=== PATIENT | female | born 1985 | race Caucasian/White ===

== ENCOUNTER 2017-02-20 21:10 | Emergency (ER) | payer OTHER ==
[2017-02-21] MEDS ORDERED: Ketorolac INJ* 60 MG/2 ML VIAL IM ONE (01:40)
[2017-02-21 03:10] VITALS: BP 122/70
--- NOTE | 2017-02-21 07:55 | RAD ---
Indication: Tailbone pain. Remote trauma November 14, 2016. Comparison: None. Technique: AP and lateral views sacrum and coccyx and a single AP view of the pelvis was obtained. Report: The visualized bones of the sacrum and coccyx are well-corticated and properly aligned. The joint spaces are adequately maintained. In the AP projection the pelvis and bilateral hips are normal. There is no radiographically apparent acute fracture or dislocation. IMPRESSION: Normal radiographic series of the pelvis, sacrum and coccyx. If the patient's symptoms persist, follow-up imaging is recommended.
--- NOTE | 2017-03-03 23:26 | ED ---
Jaz Dowd Michael, scribed for Tonio Galvez MD on 02/21/17 at 0049 . 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 She was a participant in a carrying exercise, and at the end the pt was dropped back into her seat aggravating the back pain. The back pain is worsened with movement and alleviated by laying down. She has a lump and states that it is hot. The pt originally hurt her back on 11/14/16 from slipping on ice and falling from her truck. - History of Current Complaint Chief Complaint: EDBackInjuryPain Stated Complaint: TAIL BONE PAIN Time Seen by Provider: 02/21/17 00:23 Hx Obtained From: Patient, Medical Records Onset/Duration: Sudden Onset Onset/Duration: Started Hours Ago Timing: Constant Back Pain Location: Is Discrete @ - lower back Severity Initially: Moderate Severity Currently: Moderate Pain Intensity: 8 Pain Scale Used: 0-10 Numeric Aggravating Symptom(s): Movement Alleviating Symptom(s): Position Associated Signs And Symptoms: Positive: Swelling, Other - back pain - Allergies/Home Medications Allergies/Adverse Reactions: Allergies Allergy/AdvReac Type Severity Reaction Status Date / Time Codeine Allergy Mild Vomiting Verified 07/27/16 15:33 PMH/Surg Hx/FS Hx/Imm Hx Endocrine/Hematology History: 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) Denies: Hx Diabetes Cardiovascular History: Denies: Hx Aneurysm, Hx Angina, Hx Angioplasty, Hx Atrial Fibrillation, Hx Auto Implanted Cardiovert Defib, Hx Cardiac Arrest, Hx Cardiomegaly, Hx Congenital Heart Disease, Hx Congestive Heart Failure, Hx Coronary Artery Disease, Hx Deep Vein Thrombosis, Hx Embolism, Hx Hypercholesterolemia, Hx Hypotension, Hx Hypertension, Hx Myocardial Infarction, Hx Pacemaker/ICD, Hx Peripheral Vascular Disease, Hx Rheumatic Fever, Hx Syncope, Hx Valvular Heart Disease, Other Cardiovascular Problems/Disorders Respiratory History: Denies: Hx Asthma, Hx Bronchopulmonary Dysplasia, Hx Chronic Bronchitis, Hx Chronic Obstructive Pulmonary Disease (COPD), Hx Cystic Fibrosis, Hx Lung Cancer , Hx Pleural Effusion, Hx Pneumonia, Hx Pulmonary Edema, Hx Pulmonary Embolism, Hx Seasonal Allergies, Hx Sleep Apnea, Other Respiratory Problems/Disorders GI History: Denies: Hx Cirrhosis, Hx Crohn's Disease, Hx Diverticulosis, Hx Gall Bladder Disease, Hx Gastroesophageal Reflux Disease, Hx Gastrointestinal Bleed, Hx Hiatal Hernia, Hx Irritable Bowel, Hx Jaundice, Hx Obstructive Bowel, Hx Ileostomy, Hx Pyloric Stenosis, Hx Ulcer, Hx Urosepsis, Other GI Disorders History: Reports: Hx Kidney Infection - stent x 5 this pregnanc y, none now, Other Problems/Disorders Denies: Hx Renal Disease Musculoskeletal History: Reports: Hx Rheumatoid Arthritis - JRA Sensory History: Denies: Hx Hearing Aid Psychiatric History: Reports: Hx Anxiety Denies: Hx Panic Disorder - Surgical History Surgery Procedure, Year, and Place: thyroidectomy 2009. C SECTION 11/2015 Infectious Disease History: No Infectious Disease History: Denies: History Other Infectious Disease, Traveled Outside the [place] in Last 30 Days - Family History Known Family History: Positive: None Negative: Blood Disorder - Social History Occupation: Employed Full-time Lives: With Family Alcohol Use: None Substance Use Type: Reports: None Hx Tobacco Use: No Smoking Status (MU): Never Smoked Tobacco Have You Smoked in the Last Year: No Review of Systems Negative: Fever Positive: Other - back pain. All Other Systems Reviewed And Are Negative: Yes Physical Exam Vital Signs On Initial Exam: Initial Vitals Temp Pulse Resp BP Pulse Ox 98.0 F 81 16 139/75 100 02/20/17 21:33 02/20/17 21:33 02/20/17 21:33 02/20/17 21:33 02/20/17 21:33 Diagnostics - Vital Signs Vital Signs Temp Pulse Resp BP Pulse Ox 02/20/17 23:46 97.2 F 90 16 121/69 100 02/20/17 21:33 98.0 F 81 16 139/75 100 - Laboratory Lab Statement: Any lab studies that have been ordered have been reviewed, and results considered in the medical decision making process. - Radiology Pelvis XR Xray Interpretation: No Acute Changes Radiology Interpretation Completed By: ED Physician Sacrum/Coccyx XR Xray Interpretation: No Acute Changes Radiology Interpretation Completed By: ED Physician Back Pain Course/Dx - Diagnoses Provider Diagnoses: contusion status post fall Discharge - Discharge Plan Condition: Stable Disposition: HOME Patient Education Materials: Acute Low Back Pain (ED) Forms: *Work Release Referrals: Manuel Jauregui MD [Primary Care Provider] - Additional Instructions: You should follow up with Dr. Jauregui within the next 2-3 days. The documentation as recorded by the Jaz jacobsen Michael accurately reflects the service I personally performed and the decisions made by me, Tonio Galvez MD.
== END 2017-02-21 03:08 | disposition home or self-care (01) ==
LOC: ED 21:10
DX: S20.229A Contusion of unspecified back wall of thorax, initial encounter (principal); R60.0 Localized edema; W19.XXXA Unspecified fall, initial encounter; Y93.9 Activity, unspecified; Y92.9 Unspecified place or not applicable
CPT/HCPCS: 72170; 72220; 96372; 99282; J1885

== ENCOUNTER 2018-05-19 17:45 | Emergency (ER) | payer OTHER ==
[2018-05-19 18:12] LABS: ABS Basophils 0.1 10^3/ul (0-0.2); ABS Eosinophils 0.1 10^3/ul (0-0.6); ABS Lymphocytes 2.6 10^3/ul (1.0-4.8); ABS Monocytes 0.5 10^3/ul (0-0.8); ABS Neutrophils 6.4 10^3/ul (1.5-7.7); ABS Nucleated RBC 0 10^3/ul; Eosinophil % 1.1 % (0-6); Hematocrit 42 % (35-47); Hemoglobin 14.2 g/dl (12.0-16.0); Lymphocyte % 27.4 % (25-47); Mean Corpuscular HGB Conc 34 g/dl (31-36); Mean Corpuscular Hemoglobin 31 pg (27-31); Mean Corpuscular Volume 92 fL (80-97); Mean Platelet Volume 9.1 um3 (7.4-10.4); Nucleated Red Blood Cells % 0.1; Platelet Count 209 10^3/ul (150-450); Red Cell Distribution Width 13 % (10.5-15); White Blood Count 9.6 10^3/ul (3.5-10.8)
[2018-05-19 18:29] LABS: EGFR Non-African American 65.7 (>60)
--- NOTE | 2018-05-19 18:45 | RAD ---
INDICATION: Chest pain COMPARISON: None TECHNIQUE: An AP portable view obtained at 1820 hours is submitted. FINDINGS: Bones/Soft Tissues: There are no acute bony findings. Cardiomediastinal: The cardiomediastinal silhouette is normal. Lungs: There are no infiltrates. Pleura: There are no pleural effusions. Other: None IMPRESSION: NORMAL CHEST.
--- NOTE | 2018-05-19 18:57 | RAD ---
INDICATION: Right upper quadrant pain COMPARISON: CT abdomen pelvis November 24, 2014 TECHNIQUE: Longitudinal and transverse scans of the right upper quadrant were obtained. Doppler interrogation of the hepatic and portal venous system was performed. FINDINGS: Liver: The liver is enlarged. The echogenicity is normal. There are no masses. The liver measures 20.4 cm in cephalocaudal dimension. Vessels: There is normal hepatic and portal venous flow. Bile ducts: There is no evidence of intrahepatic or extrahepatic ductal dilatation. The common duct measures 0.4 cm. Gallbladder: The sonographic appearance of the gallbladder is normal. There is no evidence of cholelithiasis, thickening of the gallbladder wall, or pericholecystic fluid. Pancreas: Not seen due to interfering bowel gas Right kidney: The right kidney is normal in size and echogenicity. There are no masses or calculi. There is no evidence of hydronephrosis. The right kidney measures 11.5 x 4.9 x 4.1 cm. IVC and aorta: The aorta and superior vena cava appear normal. Fluid: There is no ascites. Other: None. IMPRESSION: HEPATOMEGALY. NORMAL GALLBLADDER.
[2018-05-19] MEDS ORDERED: Lidocaine 2% VISCOUS* 15 ML UDC PO ONE (21:51)
[2018-05-19] MEDS ORDERED: Al Hydrox/Mg Hydrox/Simet LIQ* 30 ML UDC PO ONE (21:52)
[2018-05-19] MEDS ORDERED: Acetaminophen TAB* 325 MG PO ONE (21:53)
--- NOTE | 2018-05-19 22:46 | ED ---
Jason Dowd Natalie, scribed for Zoë Bundy MD on 05/19/18 at 1835 . HPI Chest Pain - HPI Summary HPI Summary: The patient is a 32 y/o F presenting to [facility] c/o midsternal CP and epigastric pain underneath her xiphoid process starting a few hours [employer]. The pain is constant with intermittent episodes of burning sensations and does not radiate. The pain is described as a stabbing and smashing in her chest, rated 5/10 in severity. She additionally c/o SOB, lightheadedness, dizziness, nausea without vomiting, constipation with some episodes of diarrhea, and loss of appetite. She first felt nauseous two days ago when she was running on a treadmill, but did not have the epigastric pain then. She states that the pain did not start after eating. She has not taken any medication [employer] to relieve the pain. Her last normal bowel movement was 05/15/18. - History of Current Complaint [facility] Time Seen by Provider: 05/19/18 17:50 Hx Obtained From: Patient Onset/Duration: Started Hours Ago, Still Present Timing: Constant, Lasting Hours Initial Severity: Moderate Current Severity: Moderate Pain Intensity: 5 Pain Scale Used: 0-10 Numeric Chest Pain Location: Mid Sternal - epigastric Chest Pain Radiates: No Chest Pain Radiates To:: Epigastric Character: Burning, Sharp/Stabbing, Other: - smashing Aggravating Factor(s): Nothing Alleviating Factor(s): Nothing Associated Signs and Symptoms: Positive: Dizziness, Shortness of Breath, Lightheadedness, Nausea, Other: - constipation and diarrhea, loss of appetite. 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) Denies: Hx Diabetes Cardiovascular History: Denies: Hx Aneurysm, Hx Angina, Hx Angioplasty, Hx Atrial Fibrillation, Hx Auto Implanted Cardiovert Defib, Hx Cardiac Arrest, Hx Cardiomegaly, Hx Congenital Heart Disease, Hx Congestive Heart Failure, Hx Coronary Artery Disease, Hx Deep Vein Thrombosis, Hx Embolism, Hx Hypercholesterolemia, Hx Hypotension, Hx Hypertension, Hx Myocardial Infarction, Hx Pacemaker/ICD, Hx Peripheral Vascular Disease, Hx Rheumatic Fever, Hx Syncope, Hx Valvular Heart Disease, Other Cardiovascular Problems/Disorders Respiratory History: Denies: Hx Asthma, Hx Bronchopulmonary Dysplasia, Hx Chronic Bronchitis, Hx Chronic Obstructive Pulmonary Disease (COPD), Hx Cystic Fibrosis, Hx Lung Cancer , Hx Pleural Effusion, Hx Pneumonia, Hx Pulmonary Edema, Hx Pulmonary Embolism, Hx Seasonal Allergies, Hx Sleep Apnea, Other Respiratory Problems/Disorders GI History: Denies: Hx Cirrhosis, Hx Crohn's Disease, Hx Diverticulosis, Hx Gall Bladder Disease, Hx Gastroesophageal Reflux Disease, Hx Gastrointestinal Bleed, Hx Hiatal Hernia, Hx Irritable Bowel, Hx Jaundice, Hx Obstructive Bowel, Hx Ileostomy, Hx Pyloric Stenosis, Hx Ulcer, Hx Urosepsis, Other GI Disorders History: Reports: Hx Kidney Infection - stent x 5 this pregnanc y, none now, Other Problems/Disorders Denies: Hx Renal Disease Musculoskeletal History: Reports: Hx Rheumatoid Arthritis - JRA Sensory History: Denies: Hx Hearing Aid Psychiatric History: Reports: Hx Anxiety Denies: Hx Panic Disorder - Surgical History Surgery Procedure, Year, and Place: thyroidectomy 2009. C SECTION 11/2015 Infectious Disease History: No Infectious Disease History: Denies: History Other Infectious Disease, Traveled Outside the [place] in Last 30 Days - Family History Known Family History: Positive: None Negative: Blood Disorder - Social History Alcohol Use: None Substance Use Type: Reports: None Hx Tobacco Use: No Smoking Status (MU): Never Smoked Tobacco Have You Smoked in the Last Year: No Review of Systems Positive: Other - lightheaded, dizziness Positive: Chest Pain - mid sternal pain Positive: Shortness Of Breath Positive: Abdominal Pain - epigastric pain, Nausea, Other - constipation with episodes of diarrhea, loss of appetite. Negative: Vomiting All Other Systems Reviewed And Are Negative: Yes Physical Exam - Summary Physical Exam Summary: Appearance: Well-appearing, Well-nourished Skin: Warm Eyes: Normal ENT: Normal Neck: Supple, nontender Respiratory: Clear to auscultation Cardiovascular: Regular rate, regular rhythm. Normal S1, S2. Abdomen: Soft,moderate epigastric tenderness that does not radiate, normal bowel sounds Musculoskeletal: Normal, Strength/ROM Intact Neurological: Normal, A&Ox3 Psychiatric: Normal General: No acute distress Triage Information Reviewed: Yes Vital Signs On Initial Exam: Initial Vitals Temp Pulse Resp BP Pulse Ox 98.9 F 80 16 123/65 96 05/19/18 17:51 05/19/18 17:51 05/19/18 17:51 05/19/18 17:51 05/19/18 17:51 Vital Signs Reviewed: Yes Diagnostics - Vital Signs Vital Signs Temp Pulse Resp BP Pulse Ox 05/19/18 17:51 98.9 F 80 16 123/65 96 - Laboratory Lab Results: Lab Results 05/19/18 Range/Units 18:04 WBC 9.6 (3.5-10.8) 10^3/ul RBC 4.60 (4.00-5.40) 10^6/ul Hgb 14.2 (12.0-16.0) g/dl Hct 42 (35-47) % MCV 92 (80-97) fL MCH 31 (27-31) pg MCHC 34 (31-36) g/dl RDW 13 (10.5-15) % Plt Count 209 (150-450) 10^3/ul MPV 9.1 (7.4-10.4) um3 Neut % (Auto) 66.2 (38-83) % Lymph % (Auto) 27.4 (25-47) % [place] % (Auto) 4.7 (0-7) % Eos % (Auto) 1.1 (0-6) % Baso % (Auto) 0.6 (0-2) % Absolute Neuts (auto) 6.4 (1.5-7.7) 10^3/ul Absolute Lymphs (auto) 2.6 (1.0-4.8) 10^3/ul Absolute Monos (auto) 0.5 (0-0.8) 10^3/ul Absolute Eos (auto) 0.1 (0-0.6) 10^3/ul Absolute Basos (auto) 0.1 (0-0.2) 10^3/ul Absolute Nucleated RBC 0 10^3/ul Nucleated RBC % 0.1 Result Diagrams: 05/19/18 18:04 05/19/18 18:04 Lab Statement: Any lab studies that have been ordered have been reviewed, and results considered in the medical decision making process. - Radiology CXR Xray Interpretation: No Acute Changes - Normal chest. ED physician has reviewed this report. Radiology Interpretation Completed By: Radiologist - Ultrasound No standard instances Ultrasound Interpretation: Positive (See Comments) - Gallbladder US: Hepatomegaly. Normal gallbladder. ED physician has reviewed this report. Ultrasound Interpretation Completed By: Radiologist - EKG 17:48 Cardiac Rate: NL EKG Rhythm: Sinus Rhythm - 72 BPM EKG Interpretation: No ST T wave changes. Chest Pain Course/Dx - Course Course Of Treatment: LABS WNL, cxr and RUQ sono WNL. Trop neg. If pain continues f/u with GI - Diagnoses Provider Diagnoses: Epigastric abdominal pain Discharge - Sign-Out/Discharge Documenting (check all that apply): Discharge/Admit/Transfer - The pt will be discharged home. - Discharge Plan Condition: Stable Disposition: HOME Patient Education Materials: Epigastric Pain (ED) Referrals: Manuel Jauregui MD [Primary Care Provider] - - Billing Disposition and Condition Condition: STABLE Disposition: Home The documentation as recorded by the Jason jacobsen Natalie accurately reflects the service I personally performed and the decisions made by Gregor conner Euni, MD.
[2018-05-19] MEDS ORDERED: Famotidine TAB* 20 MG PO ONE (22:58)
[2018-05-19 23:15] VITALS: BP 120/72
== END 2018-05-19 23:14 | disposition home or self-care (01) ==
LOC: ED 17:45
DX: R10.13 Epigastric pain (principal); R06.02 Shortness of breath; R42 Dizziness and giddiness; R11.0 Nausea; K59.00 Constipation, unspecified; R16.0 Hepatomegaly, not elsewhere classified; Z88.5 Allergy status to narcotic agent; E06.3 Autoimmune thyroiditis; M08.00 Unspecified juvenile rheumatoid arthritis of unspecified site; F41.9 Anxiety disorder, unspecified; E89.0 Postprocedural hypothyroidism
CPT/HCPCS: 36415; 71045; 76705; 80053; 84484; 85025; 93005; 99283; A9270-GY

== ENCOUNTER 2019-07-27 20:30 | Emergency (ER) | payer OTHER ==
--- NOTE | 2019-07-27 21:00 | ED ---
Skin Complaint - HPI Summary HPI Summary: Patient complains of pain and swelling to right side labia or vagina 4 days. Patient states started after she shaved. History of same. Denies fever, cough , sore throat, CP, SOB, accessory 60, abdominal pain, change in urine, change in BM, other vaginal symptoms. - History of Current Complaint Chief Complaint: EDUrogenitalProblems Time Seen by Provider: 07/27/19 20:58 Stated Complaint: "CYST PER PT" Hx Obtained From: Patient Onset/Duration: Started Days Ago Skin Exposure Onset/Duration: Days Ago Timing: Constant Onset Severity: Mild Current Severity: Severe Pain Intensity: 8 Pain Scale Used: 0-10 Numeric Skin Location: Discrete, Other: Aggravating Symptom(s): Touch Alleviating Symptom(s): Nothing Associated Signs & Symptoms: Negative - Allergy/Home Medications Allergies/Adverse Reactions: Allergies Allergy/AdvReac Type Severity Reaction Status Date / Time codeine AdvReac Vomiting Verified 07/27/19 21:18 Home Medications: Home Medications Cytomel 0.25 mcg PO DAILY PRN 07/27/19 [History Confirmed 07/27/19] PMH/Surg Hx/FS Hx/Imm Hx Endocrine/Hematology History: 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) Denies: Hx Diabetes Cardiovascular History: Denies: Hx Aneurysm, Hx Angina, Hx Angioplasty, Hx Atrial Fibrillation, Hx Auto Implanted Cardiovert Defib, Hx Cardiac Arrest, Hx Cardiomegaly, Hx Congenital Heart Disease, Hx Congestive Heart Failure, Hx Coronary Artery Disease, Hx Deep Vein Thrombosis, Hx Embolism, Hx Hypercholesterolemia, Hx Hypotension, Hx Hypertension, Hx Myocardial Infarction, Hx Pacemaker/ICD, Hx Peripheral Vascular Disease, Hx Rheumatic Fever, Hx Syncope, Hx Valvular Heart Disease, Other Cardiovascular Problems/Disorders Respiratory History: Denies: Hx Asthma, Hx Bronchopulmonary Dysplasia, Hx Chronic Bronchitis, Hx Chronic Obstructive Pulmonary Disease (COPD), Hx Cystic Fibrosis, Hx Lung Cancer , Hx Pleural Effusion, Hx Pneumonia, Hx Pulmonary Edema, Hx Pulmonary Embolism, Hx Seasonal Allergies, Hx Sleep Apnea, Other Respiratory Problems/Disorders GI History: Denies: Hx Cirrhosis, Hx Crohn's Disease, Hx Diverticulosis, Hx Gall Bladder Disease, Hx Gastroesophageal Reflux Disease, Hx Gastrointestinal Bleed, Hx Hiatal Hernia, Hx Irritable Bowel, Hx Jaundice, Hx Obstructive Bowel, Hx Ileostomy, Hx Pyloric Stenosis, Hx Ulcer, Hx Urosepsis, Other GI Disorders History: Reports: Hx Kidney Infection - stent x 5 this pregnanc y, none now, Other Problems/Disorders Denies: Hx Renal Disease Musculoskeletal History: Reports: Hx Rheumatoid Arthritis - JRA Sensory History: Denies: Hx Hearing Aid Opthamlomology History: Denies: Hx Eye Prosthesis EENT History: Denies: Hx Deafness Neurological History: Denies: Hx Dementia Psychiatric History: Reports: Hx Anxiety Denies: Hx Panic Disorder - Surgical History Surgery Procedure, Year, and Place: thyroidectomy 2009. C SECTION 11/2015 Infectious Disease History: No Infectious Disease History: Denies: History Other Infectious Disease, Traveled Outside the [place] in Last 30 Days - Family History Known Family History: Positive: None Negative: Blood Disorder - Social History Alcohol Use: None Substance Use Type: Reports: None Hx Tobacco Use: No Smoking Status (MU): Never Smoked Tobacco Have You Smoked in the Last Year: No Review of Systems Constitutional: Negative Eyes: Negative ENT: Negative Cardiovascular: Negative Respiratory: Negative Gastrointestinal: Negative Genitourinary: Negative Musculoskeletal: Negative Skin: Other Neurological: Negative Psychological: Normal All Other Systems Reviewed And Are Negative: Yes Physical Exam - Summary Physical Exam Summary: 3 cm x 2 cm apical abscess on lower right labia majora. External exam of the vagina otherwise unremarkable. Triage Information Reviewed: Yes Vital Signs On Initial Exam: Initial Vitals Temp Pulse Resp BP Pulse Ox 98.7 F 98 16 159/88 99 07/27/19 20:40 07/27/19 20:40 07/27/19 20:40 07/27/19 20:40 07/27/19 20:40 Vital Signs Reviewed: Yes Appearance: Positive: Well-Appearing Skin: Positive: Warm Head/Face: Positive: Normal Head/Face Inspection Eyes: Positive: Normal Neck: Positive: Supple Respiratory/Lung Sounds: Positive: Clear to Auscultation Cardiovascular: Positive: Normal Abdomen Description: Positive: Nontender Pelvic Exam: Positive: External Exam Normal Musculoskeletal: Positive: Normal Neurological: Positive: Normal Psychiatric: Positive: Normal AVPU Assessment: Alert - [place] Coma Scale Best Eye Response: 4 - Spontaneous Best Motor Response: 6 - Obeys Commands Best Verbal Response: 5 - Oriented Coma Scale Total: 15 Diagnostics - Vital Signs Vital Signs Temp Pulse Resp BP Pulse Ox 07/27/19 20:40 98.7 F 98 16 159/88 99 - Laboratory Lab Statement: Any lab studies that have been ordered have been reviewed, and results considered in the medical decision making process. Course/Dx - Course Course Of Treatment: Patient complains of pain and swelling to right side labia or vagina 4 days. Patient states started after she shaved. History of same. Denies fever, cough, sore throat, CP, SOB, accessory 60, abdominal pain, change in urine, change in BM, other vaginal symptoms. Vital signs within normal limits. I&D performed with positive purulent drainage. Patient started on Bactrim here in ED. Rx for same. - Diagnoses Provider Diagnoses: Abscess of labia majora Discharge ED - Sign-Out/Discharge Documenting (check all that apply): Patient Departure Patient Received Moderate/Deep Sedation with Procedure: No - Discharge Plan Condition: Stable Disposition: HOME Prescriptions: Sulfamethox/Trimethoprim DS* [Bactrim DS 800/160 TAB*] 1 tab PO BID 10 Days #20 tab Patient Education Materials: Abscess (ED) Referrals: Manuel Jauregui MD [Primary Care Provider] - Additional Instructions: Take antibiotics as directed. Continue warm compresses and sitz baths to help facilitate draining of abscess. Continue to press occasionally on abscess to help drain. Do not go swimming for one week. Keep area clean and dry when not washing or doing sitz baths. Return to the ED for any new or worsening symptoms. - Billing Disposition and Condition Condition: STABLE Disposition: Home
[2019-07-27] MEDS ORDERED: Ibuprofen TAB* 600 MG PO ONE (21:22)
[2019-07-27] MEDS ORDERED: Sulfamethox/Trimethoprim DS 800/160* TAB PO ONE (22:16)
[2019-07-27 23:12] VITALS: BP 114/72
== END 2019-07-27 23:13 | disposition home or self-care (01) ==
LOC: ED 20:30
DX: R10.2 Pelvic and perineal pain (principal); N76.4 Abscess of vulva; E03.9 Hypothyroidism, unspecified; Z87.448 Personal history of other diseases of urinary system; F41.9 Anxiety disorder, unspecified
CPT/HCPCS: 99282; A9270-GY

== ENCOUNTER 2019-08-01 10:31 | Inpatient (IN) | payer OTHER ==
--- NOTE | 2019-08-01 10:47 | ED ---
Skin Complaint - HPI Summary HPI Summary: Pt. is a 33 y.o female who presents to the ER for worsening vaginal abscess. Pt. states about a week ago she noticed a painful bump to her right labial region. She believes it was an ingrown hair. Pt. was seen in ED 07/27 and had an I and D of area and was placed on Bactrim. Pt. states she has been taking bactrim and doing warm sitz. Pt. states that area is becoming more painful and swollen. No drainage. She notes fever and chills. Not a diabetic. Sxs are moderate in severity. Touching area makes sxs worse. Nothing makes sxs better. 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) Denies: Hx Diabetes Cardiovascular History: Denies: Hx Aneurysm, Hx Angina, Hx Angioplasty, Hx Atrial Fibrillation, Hx Auto Implanted Cardiovert Defib, Hx Cardiac Arrest, Hx Cardiomegaly, Hx Congenital Heart Disease, Hx Congestive Heart Failure, Hx Coronary Artery Disease, Hx Deep Vein Thrombosis, Hx Embolism, Hx Hypercholesterolemia, Hx Hypotension, Hx Hypertension, Hx Myocardial Infarction, Hx Pacemaker/ICD, Hx Peripheral Vascular Disease, Hx Rheumatic Fever, Hx Syncope, Hx Valvular Heart Disease, Other Cardiovascular Problems/Disorders Respiratory History: Denies: Hx Asthma, Hx Bronchopulmonary Dysplasia, Hx Chronic Bronchitis, Hx Chronic Obstructive Pulmonary Disease (COPD), Hx Cystic Fibrosis, Hx Lung Cancer , Hx Pleural Effusion, Hx Pneumonia, Hx Pulmonary Edema, Hx Pulmonary Embolism, Hx Seasonal Allergies, Hx Sleep Apnea, Other Respiratory Problems/Disorders GI History: Denies: Hx Cirrhosis, Hx Crohn's Disease, Hx Diverticulosis, Hx Gall Bladder Disease, Hx Gastroesophageal Reflux Disease, Hx Gastrointestinal Bleed, Hx Hiatal Hernia, Hx Irritable Bowel, Hx Jaundice, Hx Obstructive Bowel, Hx Ileostomy, Hx Pyloric Stenosis, Hx Ulcer, Hx Urosepsis, Other GI Disorders History: Reports: Hx Kidney Infection - stent x 5 this pregnanc y, none now, Other Problems/Disorders Denies: Hx Renal Disease Musculoskeletal History: Reports: Hx Rheumatoid Arthritis - JRA Sensory History: Denies: Hx Hearing Aid Psychiatric History: Reports: Hx Anxiety Denies: Hx Panic Disorder - Surgical History Surgery Procedure, Year, and Place: thyroidectomy 2009. C SECTION 11/2015 Infectious Disease History: No Infectious Disease History: Denies: History Other Infectious Disease, Traveled Outside the [place] in Last 30 Days - Family History Known Family History: Positive: None Negative: Blood Disorder - Social History Alcohol Use: Occasionally Substance Use Type: Reports: None Hx Tobacco Use: No Smoking Status (MU): Never Smoked Tobacco Have You Smoked in the Last Year: No Review of Systems Positive: Fever, Chills Gastrointestinal: Negative Positive: other - swelling and pain right labia All Other Systems Reviewed And Are Negative: Yes Physical Exam Triage Information Reviewed: Yes Vital Signs On Initial Exam: Initial Vitals Temp Pulse Resp BP Pulse Ox 98.0 F 100 18 142/85 98 08/01/19 10:34 08/01/19 10:34 08/01/19 10:34 08/01/19 10:34 08/01/19 10:34 Vital Signs Reviewed: Yes Appearance: Positive: Well-Appearing - Pt. lying in bed in NAD. Skin: Positive: Warm, Dry Head/Face: Positive: Normal Head/Face Inspection Eyes: Positive: Normal, EOMI Neck: Positive: Supple Pelvic Exam: Positive: Other - Examine performed with female tech in room, [place]. Moderate edema noted diffuse to entire right labia. Area is indurated without fluctuance. Edema and induration extend all the up right aspect of mons pubis. Very tender to palpation. No drainage. Neurological: Positive: Normal, CN Intact II-III Psychiatric: Positive: Affect/Mood Appropriate Diagnostics - Vital Signs Vital Signs Temp Pulse Resp BP Pulse Ox 08/01/19 10:34 98.0 F 100 18 142/85 98 - Laboratory Result Diagrams: 08/01/19 11:50 08/01/19 11:50 Lab Statement: Any lab studies that have been ordered have been reviewed, and results considered in the medical decision making process. Course/Dx - Course Course Of Treatment: Patient with worsening labial abscess/infection. She is afebrile and well-appearing on exam. I do not appreciate any fluctuance area and did not believe area can be drained time. Concern patient has finished 6 days of antibiotics and warm soaks with no improvement. Pt. given a lortab and toradol for pain. 1118: Gynecology was consult, Dr. Hagan, and he will consult on patient in the ED. Patient was given a dose of IV Rocephin. Labs show elevation in CRP otherwise unremarkable. Patient examined by Dr. Hagan and he will admit for IV antibiotics and further care. - Differential Diagnoses - Skin Complaint Differential Diagnoses: Abscess, Cellulitis - Diagnoses Provider Diagnoses: Cellulitis of labia Discharge ED - Sign-Out/Discharge Documenting (check all that apply): Patient Departure Patient Received Moderate/Deep Sedation with Procedure: No - Discharge Plan Condition: Stable Disposition: ADMITTED TO [facility] - Billing Disposition and Condition Condition: STABLE Disposition: Admitted to [facility]
[2019-08-01] MEDS ORDERED: HYDROcodone/ACETAMIN 5-325 MG* 1 TAB PO ONE (11:29)
[2019-08-01] MEDS ORDERED: Ketorolac INJ* 30 MG/ML 1 ML VIAL IV PUSH ONE (11:29)
[2019-08-01 11:56] LABS: ABS Eosinophils 0.2 10^3/ul (0-0.6); ABS Lymphocytes 2.3 10^3/ul (1.0-4.8); ABS Monocytes 0.6 10^3/ul (0-0.8); ABS Neutrophils 7.2 10^3/ul (1.5-7.7); Eosinophil % 1.5 %; Hematocrit 37 % (35-47); Hemoglobin 12.3 g/dL (12.0-16.0); Lymphocyte % 22.3 %; Mean Corpuscular HGB Conc 33 g/dL (31-36); Mean Corpuscular Hemoglobin 30 pg (27-31); Mean Corpuscular Volume 90 fL (80-97); Mean Platelet Volume 7.9 fL (7.4-10.4); Nucleated Red Blood Cells % 0.1; Platelet Count 204 10^3/uL (150-450); Red Cell Distribution Width 14 % (10-15); White Blood Count 10.4 10^3/uL (3.5-10.8)
[2019-08-01 12:22] LABS: ALT 76 U/L (7-52); AST 24 U/L (13-39); Albumin 3.7 g/dL (3.2-5.2); Albumin/Globulin Ratio 1.5 (1-3); Alkaline Phosphatase 86 U/L (34-104); Anion Gap 4 mmol/L (2-11); BUN/Creatinine Ratio 8.1 (8-20); Blood Urea Nitrogen 7 mg/dL (6-24); C Reactive Protein 26.46 mg/L (<8.01); CO2 Carbon Dioxide 27 mmol/L (22-32); Calcium 9.1 mg/dL (8.6-10.3); Chloride 106 mmol/L (101-111); EGFR African American 90.9 (>60); EGFR Non-African American 75.1 (>60); Globulin 2.4 g/dL (2-4); Glucose 92 mg/dL (70-100); Potassium 4.2 mmol/L (3.5-5.0); Sodium 137 mmol/L (135-145); Total Protein 6.1 g/dL (6.4-8.9)
[2019-08-01] MEDS ORDERED: Clindamycin 600 MG IVPREMIX(* 600 MG/50 ML SDV IV ONE (14:03)
[2019-08-01] MEDS ORDERED: ZOSYN 3.375 GM x ONE DOSE over 30 miuntes IVPB ×2 (16:00)
[2019-08-01] MEDS: Levothyroxine TAB* 125 MCG TAB PO SCH (16:34)
[2019-08-01] MEDS: Ibuprofen TAB* 600 MG PO PRN (16:40)
--- NOTE | 2019-08-01 18:28 | HP ---
HISTORY AND PHYSICAL: DATE OF ADMISSION: 08/01/19 HISTORY OF PRESENT ILLNESS: This patient is a 33-year-old 4, para 4, who presented to the emergency department this morning. The patient had been seen on 07/27/19 about 6 days ago presenting with right vulvar swelling and pain , which had been going on for a few days at that time. In the emergency department that day, attempt was made to perform an incision and drainage of the suspected abscess; however, only soft tissue was encountered and there was no visible pocket of purulent fluid found. The patient was given Bactrim oral antibiotics and discharged with instructions to do frequent sitz baths. The patient presented today reporting no improvement in her pain or swelling despite 5 days of antibiotics and sitz baths. She felt that the swelling was somewhat larger. She denied any obvious fevers or chills. She has not ever had something like this happen before. PAST MEDICAL HISTORY: Hypothyroid due to thyroidectomy. PAST SURGICAL HISTORY: Thyroidectomy, section, and LEEP as a teenager. PAST OB HISTORY: Vaginal delivery x3 and section x1. PAST BALER OPERATOR HISTORY: History of HPV with LEEP. The patient reports last Pap smear was about 4 years ago as she has not returned for BALER OPERATOR care since her last delivery due to being busy with kids. No history of other STDs. CURRENT MEDICATIONS: Levothyroxine 125 mcg daily. ALLERGIES: The patient reports nausea and vomiting with codeine, but no true medication allergies. SOCIAL HISTORY: The patient reports infrequent tobacco use. Declines nicotine replacement. Denies drugs. REVIEW OF SYSTEMS: General: Negative for fevers and chills. Otherwise feels well. Cardiovascular: Negative. Respiratory: Negative. GI: Negative. : As above. Neuro: Negative. PHYSICAL EXAMINATION GENERAL: No acute distress. Good historian. Appears tired, but otherwise fairly comfortable. VITAL SIGNS: Within normal limits, afebrile. ABDOMEN: Soft and nontender. PELVIS: External genitalia only notable for substantial swelling on the right vulva. On inspection, there is minimal erythema. On palpation, the skin is soft, but there is induration palpable below the surface extending from the posterior vulva just lateral to the introitus and extending to some degree to the mons pubis. This does not extend to the left side. All the induration is tender to touch, but not severely so. On careful inspection, there does not appear to be any obvious fluctuance or site of drainage other than the recent incision made in the emergency department. Bartholin's gland feels fairly normal. No abnormal discharge is present. LABORATORY DATA: White blood cell count 10.4 with 69.7% neutrophils, hematocrit 37. Creatinine 0.86, glucose 92. ALT 76. IMPRESSION: Right vulvar cellulitis unresponsive to 5 days of Bactrim. No apparent evidence of obvious abscess at this point, but it is still certainly possible. PLAN: Considering the infection has been unresponsive to oral antibiotics, we will admit the patient to the [facility] for IV antibiotics. I discussed this patient with Dr. Cuadra from Infectious Disease, who recommends IV Zosyn at this point. Plan to observe carefully over the next 1 to 2 days. If there is not significant improvement, we will ask Dr. Cuadra to further consult. At that time, we may also consider imaging either ultrasound or CT to evaluate for a deeper abscess that could be drained. All of this was discussed with the patient and she agrees with this plan. [id number]/[facility] #: [id number] AIME
[2019-08-01] MEDS: oxyCODONE/Acetamin 5/325 MG* TAB PO PRN ×2 (20:01→23:24)
[2019-08-01] MEDS: Piperacillin/Tazobac ADVAN(*) 3.375 GM in NS 0.9% 100 ML* 100 ML IVPB SCH (21:17)
[2019-08-02] MEDS: Ibuprofen TAB* 600 MG PO PRN ×4 (02:17→23:40)
[2019-08-02] MEDS: oxyCODONE/Acetamin 5/325 MG* TAB PO PRN ×6 (04:49→23:39)
[2019-08-02] MEDS: Piperacillin/Tazobac ADVAN(*) 3.375 GM in NS 0.9% 100 ML* 100 ML IVPB SCH ×3 (04:51→21:34)
[2019-08-02] MEDS: Levothyroxine TAB* 125 MCG TAB PO SCH (05:43)
[2019-08-02 06:34] LABS: ABS Eosinophils 0.2 10^3/ul (0-0.6); ABS Lymphocytes 3.4 10^3/ul (1.0-4.8); ABS Monocytes 0.5 10^3/ul (0-0.8); ABS Neutrophils 2.6 10^3/ul (1.5-7.7); Eosinophil % 3.3 %; Hematocrit 33 % (35-47); Hemoglobin 11.3 g/dL (12.0-16.0); Lymphocyte % 50.4 %; Mean Corpuscular HGB Conc 34 g/dL (31-36); Mean Corpuscular Hemoglobin 31 pg (27-31); Mean Corpuscular Volume 91 fL (80-97); Mean Platelet Volume 8.5 fL (7.4-10.4); Platelet Count 187 10^3/uL (150-450); Red Blood Count 3.68 10^6 /uL (3.70-4.87); Red Cell Distribution Width 14 % (10-15); White Blood Count 6.7 10^3/uL (3.5-10.8)
--- NOTE | 2019-08-02 18:03 | PN ---
Progress Note - Progress Note Date of Service: 08/02/19 Note: S: pt says it hasn't changed much since yesterday. It is still somewhat tender with movement. Denies fever/chills. Denies bleeding or discharge. AVSS Pelvic: Right labia enlarged and induration. Very mild erythema on labia. Scar from incision made last week noted at lower labia. A firm mobile area about 1.5cm is noted in the lower labia distinct from the more diffuse induration in the mid-upper labia that extends into the mons. From the line drawn yesterday it appears to maybe be slightly smaller. Mildly tender to touch. A: 33yo with right vulvar cellulitis on Zosyn, s/p attemped I&D in the ED last week and course of bactrim. Currently stable, not worsening but not significant improved yet. P: re-eval tomorrow. Consider ID consult and/or imaging if no improvement.
[2019-08-02] MEDS ORDERED: Ondansetron ODT TAB* 4 MG PO PRN (21:13)
[2019-08-02] MEDS: Docusate CAP* 100 MG PO SCH (21:44)
[2019-08-03] MEDS: oxyCODONE/Acetamin 5/325 MG* TAB PO PRN ×4 (04:14→22:55)
[2019-08-03] MEDS: Piperacillin/Tazobac ADVAN(*) 3.375 GM in NS 0.9% 100 ML* 100 ML IVPB SCH ×3 (04:47→21:35)
[2019-08-03] MEDS: Levothyroxine TAB* 125 MCG TAB PO SCH (05:46)
[2019-08-03] MEDS: Docusate CAP* 100 MG PO SCH ×2 (07:39→21:16)
[2019-08-03] MEDS: Ibuprofen TAB* 600 MG PO PRN ×2 (07:39→21:35)
--- NOTE | 2019-08-03 11:55 | PN ---
Progress Note - Progress Note Date of Service: 08/03/19 SOAP: Subjective: [Pt notes no improvement of swelling] Objective: [VSS afeb Ext: 4 cm hardened area on superior right labia majora/ drainage purulent bloody from inferior incision from 7 days ago] tender to touch/ + inflammation Assessment: [Pt with right labial abscess on Zosyn with no improvement] Plan: [Recommend incision and drainage of right labial abscess with IV sedation and local. Pt is aware of risks to include but not limited to return of abscess/ pain at sight/ scarring / need for further surgery.
[2019-08-03 13:30] LABS: HCG Pregnancy < 0.60 mIU/mL
[2019-08-03 13:52] LABS: Urine Benzodiazepine Screen None Detected (None Detect); Urine Opiates Screen Presumptive Positive (None Detect)
[2019-08-03] MEDS ORDERED: Midazolam* 1 MG/ML 2 ML VIAL (2 MG) ONE (15:27)
[2019-08-03] MEDS ORDERED: fentaNYL* 50 MCG/ML 2 ML VIAL (100 MCG VIAL) ONE (15:27)
[2019-08-03] MEDS ORDERED: Lidocaine 2% PF * 5 ML VIAL ONE (15:30)
[2019-08-03] MEDS ORDERED: Propofol* 10 MG/ML 20 ML BTL ONE ×2 (15:30→15:58)
[2019-08-03] MEDS ORDERED: Bupivacaine 0.25% EPI 200,000* 30 ML SDV ONE (15:42)
[2019-08-03] MEDS ORDERED: Naloxone* 0.4 MG/ML 1 ML VIAL IV PRN (16:12)
--- NOTE | 2019-08-03 19:08 | OP ---
OPERATIVE REPORT: DATE OF OPERATION: 08/03/19 DATE OF : 81 SURGEON: Xiomy Faustin MD ANESTHESIA: Sedation with local. PRE-OP DIAGNOSIS: Right labial abscess. POST-OP DIAGNOSIS: Right labial abscess. OPERATIVE PROCEDURE: Incision and drainage of the right labial abscess. IV FLUIDS: 400 cc of crystalloid. ESTIMATED BLOOD LOSS: Minimal. URINE OUTPUT: Not recorded. FINDINGS: Revealed a right labial abscess. DESCRIPTION OF PROCEDURE: The patient was placed in dorsal lithotomy position. Legs were placed in [employer] stirrups. The perineum and vagina were prepped and draped in a sterile standard fa shion. The patient was identified with universal protocol for correct position, patient, and procedu re. Negative urine test was confirmed. 0.25% Marcaine with epi 20 cc was injected into th e site and incision was made through prior incision that had been made in the emergency room. There was purulent drainage coming from this area. The incision was extended and widened. Lavage was perf ormed. There was purulent material that drained, and prior to lavage, a culture was obtained of the wound. After incision and drainage of the abscess, the area was then packed with half-inch plain pac zenaida. The patient was taken to recovery room in stable condition. All sponge, instrument, and blade counts were correct throughout the case. The patient tolerated the procedure well. [id number]/[facility] #: [id number]
[2019-08-04] MEDS: oxyCODONE/Acetamin 5/325 MG* TAB PO PRN ×2 (02:06→05:39)
[2019-08-04] MEDS: Piperacillin/Tazobac ADVAN(*) 3.375 GM in NS 0.9% 100 ML* 100 ML IVPB SCH (05:37)
[2019-08-04] MEDS: Levothyroxine TAB* 125 MCG TAB PO SCH (05:39)
[2019-08-04 07:51] VITALS: BP 109/62
[2019-08-04] MEDS: Docusate CAP* 100 MG PO SCH (08:28)
[2019-08-04] MEDS ORDERED: oxyCODONE/Acetamin 5/325 MG* TAB PO PRN (09:27)
--- NOTE | 2019-08-04 16:51 | PN ---
Progress Note - Progress Note Date of Service: 08/04/19 SOAP: Subjective: [Pt desires to go home notes decrease inflammation] Objective: [VSS Afeb] ext gent: decreased induration/ decreased tenderness/ packing removed and replaced/ tolerated Assessment: [Pt 33 yo with right vulvar abscess/ s/p incision and drainage on 08/03/19 ] Plan: [Pt to be discharged to home and has been instructed on packing changes. Pt verbalized discharge instructions and will continue with oral abx Bactrim DS BID for total 10 days. Pt to take Percocet prior to packing changes and will f/ u in office in 48 hours for recheck. Pt discharged to home in stable condition.]
--- NOTE | 2019-08-28 09:26 | DS ---
DISCHARGE SUMMARY: DATE OF ADMISSION: 08/01/19 DATE OF DISCHARGE: 08/04/19 HISTORY OF PRESENT ILLNESS/HOSPITAL COURSE: The patient is a 33-year-old 4, para 4, who came in through the emergency room on 07/27/19, 6 days prior to admission with right vulvar swelling and pain. At that point, the patient was placed on Bactrim oral antibiotics and was discharged. The patient reported no improvement, swelling increased and the patient came and was admitted for IV antibiotic therapy. She was placed on IV Zosyn for right labial abscess. By hospital day 2, the patient noted there was no improvement. If anything, the area was slightly more inflamed and red and there was about approximately 4 cm hardened area in the right labia majora. It was determined at that point that the patient should go to operating room and on 08/03/19, the patient was taken to the operating room and had an incision and drainage of the right labial abscess with packing placed. The patient was observed overnight and on postoperative day 1, the patient was discharged to home doing self-care and self-packing once a day using half-inch plain packing. The patient felt very comfortable doing her own packing changes and was scheduled for followup in the office within 48 to 72 hours. The patient throughout her stay was stable and was discharged to home verbalizing understanding of instructions and in stable condition. [id number]/[facility] #: [id number] MTDD
== END 2019-08-04 09:57 | disposition home or self-care (01) | DRG 518 ==
LOC: ED 10:31 → SSU 14:58
PROVIDERS: ADMIT Obstetrics & Gynecology; ATTEND Obstetrics & Gynecology
PROC: 0U9M0ZZ Drainage of Vulva, Open Approach (ICD-10-PCS; principal; 2019-08-04)
DX: N76.4 Abscess of vulva (principal); N76.2 Acute vulvitis; E89.0 Postprocedural hypothyroidism; M06.9 Rheumatoid arthritis, unspecified; F41.9 Anxiety disorder, unspecified; Z72.89 Other problems related to lifestyle; Z72.0 Tobacco use; Z88.5 Allergy status to narcotic agent
CPT/HCPCS: 36415; 80053; 80307; 84702; 85025; 86140; 87070; 87073; 87205; 87640; 87641; 99284; 99406; A9270-GY; J1885; J2250; J2543; J2704; J3010

== ENCOUNTER 2024-10-20 19:29 | Observation (INO) ==
[2024-10-20] MEDS: Lidocaine PATCH 5% PATCH TRANSDERM ONE (20:49)
[2024-10-21 07:59] LABS: ABS Eosinophils 0.2 10^3/uL (0.0-0.5); ABS Lymphocytes 2.8 10^3/uL (1.0-4.8); ABS Monocytes 0.5 10^3/uL (0.0-0.9); ABS Neutrophils 6.7 10^3/uL (1.5-7.6); ABS Nucleated RBC 0.01 10^3/ul; Eosinophil % 1.6 %; Hematocrit 41.2 % (35-45); Hemoglobin 13.9 g/dL (11.5-14.3); Lymphocyte % 27.4 %; Mean Corpuscular Hemoglobin 31.4 pg (27-33); Mean Corpuscular Hgb Conc 33.8 g/dL (31-36); Mean Corpuscular Volume 92.8 fL (80-97); Mean Platelet Volume 8.3 fL (7.5-11.2); Nucleated Red Blood Cells % 0.1 %/100WBC (0.0-0.8); Platelet Count 233 10^3/uL (150-450); Red Blood Count 4.44 10^6/uL (3.63-4.92); Red Cell Distribution Width 13.6 % (12-17); White Blood Count 10.2 10^3/uL (3.8-11.8)
[2024-10-21 08:25] LABS: Albumin 4.3 g/dL (3.2-5.2); Albumin/Globulin Ratio 2.3 (1-3); CRP High Sensitivity 2.66 mg/L (<2.00); Creatinine, Serum 0.98 mg/dL (0.51-0.95); Globulin 1.9 g/dL (2-4); Potassium 4.3 mmol/L (3.5-5.0); Total Bilirubin 0.7 mg/dL (0.2-1.0); Total Protein 6.2 g/dL (6.4-8.9); eGFR CKD-EPI 74.4 (>60)
[2024-10-21 08:50] LABS: Folate 8.47 ng/mL (5.90-24.80)
[2024-10-21] MEDS: Morphine 4 MG/ML VIAL (1 ml) IV ONE (09:24)
[2024-10-21] MEDS: Ondansetron 4 mg VIAL 2 MG/ML 2 ml VIAL IV ONE (09:24)
[2024-10-21 09:29] LABS: Body Fluid Source Cerebral Spinal
[2024-10-21 09:32] LABS: Erythrocyte Sed Rate 5 mm/Hr (0-19)
[2024-10-21 09:47] LABS: CSF Body Fluid WBC 0 /mcL
[2024-10-21] MEDS: Cyanocobalamin INJ 1,000 MCG/ML VIAL 1 ML VIAL IM ONE (10:41)
[2024-10-21 10:51] LABS: CSF Glucose 53 mg/dL (40-70)
[2024-10-21 11:57] LABS: Body Fluid Total Cells Counted 3; CSF Tube # 4
[2024-10-21 11:58] LABS: Body Fluid Appearance Clear; Body Fluid Color Colorless
[2024-10-21] MEDS: Morphine 2 MG/ML SYRINGE IV PRN (15:00)
[2024-10-21] MEDS: Enoxaparin 40 MG/0.4 ML SYR SUBCUT SCH (20:48)
[2024-10-21 22:30] LABS: C Reactive Protein 3.2 mg/L (<8.01)
[2024-10-21] MEDS: Gadoteridol (CONTRAST) 279.3 MG/ML 10 ML IV ONE (23:56)
[2024-10-22] MEDS: Cyanocobalamin INJ 1,000 MCG/ML VIAL 1 ML VIAL IM ONE (09:31)
[2024-10-22 09:42] VITALS: BP 126/77
[2024-10-23 17:16] LABS: HSV 1 PCR, CSF Negative (Negative); HSV 2 PCR, CSF Negative (Negative)
[2024-10-23 19:37] LABS: Anaplasma phagocytophilum Negative (Negative); B. miyamotoi PCR, B Negative (Negative); Babesia divergens/MO-1 Negative (Negative); Babesia ducani Negative (Negative); Ehrlichia chaffeensis Negative (Negative); Ehrlichia ewingii/canis Negative (Negative); Ehrlichia muris eauclairensis Negative (Negative)
[2024-10-25 13:13] LABS: CSF VDRL Negative (Negative)
[2024-10-25 16:54] LABS: CSF Oligoclonal Bands 4 bands; Oligoclonal Proteins Interpret 0 bands (<2); Serum Oligoclonal Bands 4 bands
[2024-10-25 22:21] LABS: HTLV-I/II Antibody Negative (Negative)
== END 2024-10-22 09:45 | disposition home or self-care (01) ==
LOC: EDHOLD 19:29 → ED 19:29 → MED 10-21 16:03
PROVIDERS: ADMIT Hospitalist; ATTEND Hospitalist